=== PATIENT | male | born 1950 | race Caucasian/White ===

== ENCOUNTER 2017-02-06 12:29 | Observation (INO) | payer OTHER ==
[~2017-02-06] VITALS: Ht 177.8 cm; Wt 104.5 kg
[~2017-02-06 12:29] MED LIST: AMLODIPINE BESYL5 MG PO; ASPIRIN325 MG PO; ISOSORBIDE MONO60 MG PO; LOPRESSOR100 M1 PO; METFORMIN HCL500 MG PO; METOPROLOL TART50 MG PO; PRAVASTATIN SOD80 MG PO; RAMIPRIL10 MG PO; VICTOZA 2-0.6 MG/0.1 SC
[2017-02-06 12:56] LABS: HEMATOCRIT 40.3 % (38.0-50.0); MCH 28.2 PG (29.0-34.0); MCHC 34.2 G/DL (30.0-36.0); MCV 82.4 FL (86-99); MEAN PLAT.VOLUME 10.5 uM^3 (9.0-12.4); PLATELET COUNT 207 K/uL (156-360); RBC DIS.WIDTH-CV 12.9 % (11.8-14.6); RBC DIS.WIDTH-SD 38.8 % (39-53); RED BLOOD COUNT 4.89 M/uL (4.00-5.50)
[2017-02-06 13:09] LABS: CHLORIDE 102 mEq/L (99-109); POTASSIUM 3.8 mEq/L (3.7-5.4); SODIUM 138 mEq/L (136-147)
[2017-02-06 13:11] LABS: GLUCOSE 209 mg/dL (70-99)
[2017-02-06 13:12] LABS: ANION GAP 7 MEQ/L (2-14)
[2017-02-06 13:15] LABS: GFR ESTIMATE (CALCULATED) > 59 mL/min/
[2017-02-06 13:16] LABS: TROP-I INTERPRETATION NEGATIVE; TROPONIN-I 0.01 ng/mL (0.0-0.30); UREA NITROGEN (BUN) 11 mg/dL (9-23)
[2017-02-06] MEDS ORDERED: OMEPRAZOLE20 M2 PO (15:00)
[2017-02-06] MEDS ORDERED: CYANOCOBALAM1000 MCG PO (15:00)
[2017-02-06] MEDS ORDERED: ROSUVASTATIN CA10 MG PO (15:01)
[2017-02-06] MEDS ORDERED: ZYRTEC10 M3 PO (15:01)
[2017-02-06] MEDS ORDERED: FLONASE16 G1 BOTH NARES (15:02)
[2017-02-06 18:00] VITALS: BP 179/95
[2017-02-06 18:19] LABS: POINT-OF-CARE METER ID UU13113831
[2017-02-06 19:13] LABS: TROP-I INTERPRETATION NEGATIVE; TROPONIN-I 0.01 ng/mL (0.0-0.30)
[2017-02-06 19:45] VITALS: BP 156/86
[2017-02-06 21:45] LABS: POINT-OF-CARE METER ID UU13113700
[2017-02-06 23:54] VITALS: BP 135/75
[2017-02-07 01:19] LABS: TROP-I INTERPRETATION NEGATIVE; TROPONIN-I 0.01 ng/mL (0.0-0.30)
[2017-02-07 03:31] VITALS: BP 128/65
[2017-02-07 06:17] LABS: TROP-I INTERPRETATION NEGATIVE; TROPONIN-I < 0.01 ng/mL (0.0-0.30)
[2017-02-07 08:09] VITALS: BP 175/88
[2017-02-07 08:16] LABS: POINT-OF-CARE METER ID UU13113831
== END 2017-02-07 09:38 | disposition home or self-care (01) ==
LOC: RME 12:29 → EME 12:29 → EDOF 14:56 → 5WEST 14:56 → EDOF 14:56 → 5WEST 17:53
PROVIDERS: Hospitalist; Internal Medicine; Internal Medicine Cardiovascular Disease
DX: R07.89 Other chest pain (principal); I25.10 Atherosclerotic heart disease of native coronary artery without angina pectoris; E11.9 Type 2 diabetes mellitus without complications; I10 Essential (primary) hypertension; Z95.5 Presence of coronary angioplasty implant and graft; E78.5 Hyperlipidemia, unspecified
CPT/HCPCS: 71020; 80048; 82948; 84484; 85027; 93005; 99281; 99285; G0378; J1650; J1815

== ENCOUNTER 2017-05-26 10:35 | Day surgery (SDC) | payer OTHER ==
[~2017-05-26] VITALS: Ht 177.8 cm; Wt 101.0 kg
[~2017-05-26 10:35] MED LIST changes: +CYANOCOBALAM1000 MCG PO; +FLONASE16 G1 BOTH NARES; +NIFEDIPINE ER60 MG PO; +OMEPRAZOLE20 M2 PO; +OMEPRAZOLE40 M1 PO; +ROSUVASTATIN CA10 MG PO; +ZANTAC75 M1 PO; +ZYRTEC10 M3 PO
[2017-05-26 10:55] VITALS: BP 126/65
[2017-05-26 11:06] LABS: POINT-OF-CARE METER ID UU13113694
[2017-05-26] MEDS ORDERED: NORCO 5/3251 TABLET PO (15:32)
[2017-05-26 15:36] LABS: POINT-OF-CARE METER ID UU13113675
[2017-05-26 16:35] VITALS: BP 155/73
[2017-05-26 17:37] VITALS: BP 154/72
== END 2017-05-26 17:45 | disposition home or self-care (01) ==
LOC: SDC 10:35
PROVIDERS: Surgery
DX: K81.1 Chronic cholecystitis (principal); I10 Essential (primary) hypertension; E11.9 Type 2 diabetes mellitus without complications; Z68.32 Body mass index [BMI] 32.0-32.9, adult; E66.9 Obesity, unspecified; E78.4 Other hyperlipidemia; Z79.84 Long term (current) use of oral hypoglycemic drugs; Z79.82 Long term (current) use of aspirin; Z80.3 Family history of malignant neoplasm of breast; Z82.49 Family history of ischemic heart disease and other diseases of the circulatory system
CPT/HCPCS: 74300; 82948; 88304; C1769; J1170; J2250; J2405; J2710; J3010; S0020